=== PATIENT | male | born 2000 | race Caucasian/White ===

== ENCOUNTER 2020-07-26 16:12 | Outpatient (REF) | payer MEDICAID, SELFPAY | END 2020-07-26 16:13 | disposition home or self-care (01) | LOC: HO.LAB 16:12 | PROVIDERS: PCP Pediatrics; Visit Provider Internal Medicine | DX: Z20.828 Contact with and (suspected) exposure to other viral communicable diseases (principal) | CPT/HCPCS: C9803; U0003 ==

== ENCOUNTER 2020-08-11 13:00 | Emergency (ER) | payer MEDICAID, SELFPAY ==
[2020-08-11 13:30] VITALS: BP 104/52; PULSE 58; RESP 14; TEMP 36.7; O2SAT 99; BMI 21.1
--- NOTE | 2020-08-11 14:45 | XR_ITS ---
EXAMINATION: CR X-RAY BILATERAL KNEES 4 VIEW CLINICAL INFORMATION: Knee pain. COMPARISON: None TECHNIQUE: 4 views each of the bilateral knees. FINDINGS: No significant tricompartmental degenerative joint changes are seen bilaterally. There is no acute fracture, dislocation or joint effusion. The soft tissues are unremarkable. XR/XR knee LT 4V IMPRESSION: Unremarkable bilateral knees.
--- NOTE | 2020-08-11 14:45 | XR_ITS ---
EXAMINATION: CR X-RAY BILATERAL KNEES 4 VIEW CLINICAL INFORMATION: Knee pain. COMPARISON: None TECHNIQUE: 4 views each of the bilateral knees. FINDINGS: No significant tricompartmental degenerative joint changes are seen bilaterally. There is no acute fracture, dislocation or joint effusion. The soft tissues are unremarkable. XR/XR knee RT 4V IMPRESSION: Unremarkable bilateral knees.
--- NOTE | 2020-08-11 16:06 | ED_ITS ---
HPI - Extremity Injury (Lower) General Chief Complaint: Extremity Injury, Lower Stated Complaint: knee pain Time Seen by Provider: 08/11/20 14:45 History of Present Illness HPI Narrative: Patient complains of bilateral knee pain after running, no fall no other injury, no swelling Related Data Previous Rx's Medication Instructions Recorded ibuprofen 600 mg PO Q6H PRN #20 tab 08/11/20 Allergies Allergy/AdvReac Type Severity Reaction Status Date / Time No Known Allergies Allergy Unverified 05/11/20 17:14 Review of Systems Review of Systems: Positive for bilateral knee pain no numbness no tingling no paresthesias no fever no chills no rash Yes all other systems are reviewed and are negative [facility] Past Medical History Attestation statement: The following information was validated with the patient. Source: nursing notes reviewed Medical History (Updated 08/11/20 @ 15:49 by ISAI Valentin) No known health problems Social History Social History Alcohol intake: never Smoking Status: Never smoker Use of substances other than those prescribed or required for medical reasons: No Advance Directives: No Advance Directives Information Provided: Yes Physical Exam Vital Signs: Vital Signs: Last Vital Signs Temp 98.1 F 08/11/20 13:30 Pulse 58 08/11/20 13:30 Resp 14 08/11/20 13:30 BP 104/52 L 08/11/20 13:30 Pulse Ox 99 08/11/20 13:30 Body Mass Index 21.1 General appearance no distress comfortable relax cheerful cooperative Normocephalic atraumatic Neck is supple Respiratory no distress Extremities full range of motion x4 including bilateral knees, both knees are normal in appearance with no redness or swelling no effusions, full range of motion in both knees, gait is normal, there is mild tenderness to the anterior aspect of both knees, no ligamentous laxity quadriceps patellar tendons intact Skin no rashes Neuro no deficits Course Course Course Narrative: X-rays were normal, patient will follow with orthopedist as needed Discharge Plan Discharge Clinical Impression: Anterior knee pain Qualifiers: Laterality: unspecified laterality Qualified Code(s): M25.569 - Pain in unspecified knee Patient Disposition: Home, Self-Care Additional Instructions: Pain is most likely from starting to run again, there is no sign of any dangerous or serious injury X-rays were normal Follow with Sports Medicine or orthopedist if needed Return any time if worse Prescriptions: New ibuprofen 600 mg tablet 600 mg PO Q6H PRN (Reason: pain) Qty: 20 RF: 0 Interventions: ED Discharge Assessment Last Done: 08/11/20 16:14 Discharge Date/Time: 08/11/20 16:14
== END 2020-08-11 16:14 | disposition home or self-care (01) ==
PROVIDERS: Emergency Provider Emergency Medicine Emergency Medical Services; PCP Pediatrics
DX: M25.562 Pain in left knee (principal); M25.561 Pain in right knee
CPT/HCPCS: 73564; 99283

== ENCOUNTER 2020-09-05 16:15 | Outpatient (REF) | payer MEDICAID, SELFPAY | END 2020-09-05 16:16 | disposition home or self-care (01) | LOC: HO.LAB 16:15 | PROVIDERS: PCP Pediatrics; Visit Provider Internal Medicine | DX: Z20.822 Contact with and (suspected) exposure to COVID-19 (principal) | CPT/HCPCS: 36415; C9803; U0003 ==

== ENCOUNTER 2022-04-15 16:10 | Outpatient (REF) | payer MEDICAID, SELFPAY ==
--- NOTE | ~2022-04-15 | XR_ITS ---
EXAMINATION: XR KNEE, LEFT CLINICAL INFORMATION: Left knee pain COMPARISON: 08/11/2020 TECHNIQUE: Four views of the left knee. This includes upright AP view . FINDINGS: No fracture or subluxation. Compartmental joint spaces are maintained. No joint effusion. The soft tissues are unremarkable. XR/XR knee LT 4V IMPRESSION: Normal left knee.
== END 2022-04-15 16:11 | disposition home or self-care (01) ==
LOC: HO.XRAY 16:10
PROVIDERS: Absent Provider Registered Nurse; PCP Registered Nurse; Visit Provider Emergency Medicine
DX: M25.562 Pain in left knee (principal)
CPT/HCPCS: 73564